=== PATIENT | female | born 1935 | race Caucasian/White ===

== ENCOUNTER 2019-10-28 13:56 | Emergency (ER) | payer MEDICARE ==
[~2019-10-28] VITALS: Ht 165.1 cm; Wt 54.0 kg
[~2019-10-28 13:56] MED LIST: AMLO-150 PO; AMOX1TAB64 PO; CIPR500T3 PO; HYDR12.517 PO; IBUP-1222 PO; LATA2.5D3 EACHEYE; LEVO88TA2 PO; LISI2.5T PO; LISI40TA PO; METR500T PO; POLY17PO5 PO; ROSU5TAB PO; SPIR1TAB3 PO; SPIR25TA5 PO; TRAM50TA2 PO
--- NOTE | 2019-10-28 14:31 | NUR ---
DR FALK BS FOR EXAM
--- NOTE | 2019-10-28 14:46 | NUR ---
pt. had a EKG done @ 4212 by [email or web address] styles request.
--- NOTE | 2019-10-28 14:52 | NUR ---
PT STATES SHE WAS EXPOSED TO COVID AT [employer] 3 SUNDAYS AGO. WOKE THIS AM, DIDN'T FEEL GOOD, MINOR FEVER "ABOUT 99", DECREASED APPETITE, POSTERIOR NECK PAIN. NO MEDS TAKEN FOR SX. DENIES COUGH TODAY, SOB, DYSPNEA. RESP EVEN & UNLABORED, SPEECH WOBBLY SOUNDING BUT CLEAR, ABLE TO SPEAK IN COMPLETE SENTENCES, SKIN WNL. TRANSPORTATION MAINTENANCE SUPERVISOR: NSR
[2019-10-28 15:01] LABS: BASOPHILS # (AUTO) 0.02 x10^3/uL (0-0.1); BASOPHILS % (AUTO) 0 % (0-1); EOSINOPHILS # (AUTO) 0.14 x10^3/uL (0-0.4); EOSINOPHILS % (AUTO) 3 % (1-7); LYMPHOCYTES # (AUTO) 0.85 x10^3/uL (1-3.4); LYMPHOCYTES % (AUTO) 19 % (22-44); MD NO; MEAN CORPUSCULAR HEMOGLOBIN 33.3 pg (27.0-34.8); MEAN CORPUSCULAR HGB CONC 33.5 g/dL (32.4-35.8); MEAN CORPUSCULAR VOLUME 99.6 fL (80-100); MEAN PLATELET VOLUME 9.6 fL (7.4-10.4); MONOCYTES # (AUTO) 0.86 x10^3/uL (0.2-0.8); MONOCYTES % (AUTO) 19 % (2-9); NEUTROPHILS % (AUTO) 58 % (42-75); PLATELET COUNT 172 x10^3/uL (130-400); RED BLOOD COUNT 4.62 x10^6/uL (3.82-5.3); RED CELL DISTRIBUTION WIDTH 13.3 % (9.6-15.2)
[2019-10-28] MEDS ORDERED: ROSU5TAB12 PO (15:05)
[2019-10-28] MEDS ORDERED: PROP20TA PO (15:05)
[2019-10-28] MEDS ORDERED: LEVO75TA5 PO (15:05)
--- NOTE | 2019-10-28 15:07 | NUR ---
COMMODE CHAIR TO ROOM.
[2019-10-28 15:10] LABS: ALBUMIN 3.9 g/dL (3.4-5.0); ANION GAP 5 mmol/L (5-15); CALCIUM 9.3 mg/dL (8.5-10.1); CHLORIDE 95 mmol/L (98-107); CREATININE 0.79 mg/dL (0.55-1.02)
[2019-10-28 17:01] VITALS: BP 177/71
--- NOTE | 2019-10-28 17:31 | NUR ---
TASK RN: DC EDUCATION PROVIDED, PT DEMONSTRATES UNDERSTANDING .PT AMBULATED STEADILY TO DC WITH RN. SON TO TRANSPORT PT HOME
== END 2019-10-28 17:33 | disposition home or self-care (01) ==
LOC: ED 17:15
DX: U07.1 COVID-19 (principal); R50.9 Fever, unspecified; R05 Cough; M79.10 Myalgia, unspecified site; E78.00 Pure hypercholesterolemia, unspecified; E03.9 Hypothyroidism, unspecified; I10 Essential (primary) hypertension; I51.7 Cardiomegaly; Z90.89 Acquired absence of other organs; Z90.710 Acquired absence of both cervix and uterus; Z87.891 Personal history of nicotine dependence
CPT/HCPCS: 36415; 71045; 80048; 82040; 85025; 93005; 99285; U0001